=== PATIENT | female | born 1960 ===

== ENCOUNTER 2017-01-17 10:09 | Emergency (ER) | payer BC, OTHER ==
[~2017-01-17] VITALS: Ht 165.1 cm; Wt 79.4 kg
[2017-01-17] MEDS ORDERED: LIDOCAINE 1% / SOD BICARB 8.4% 20 ML VIAL. IJ ONE (11:30)
--- NOTE | 2017-01-17 11:43 | PHYS DOC ---
Past Medical History Past Medical History: No Pertinent History Past Surgical History: Other Additional Past Surgical Histo: STOMACH SURG Alcohol Use: None Drug Use: None Adult General Chief Complaint Chief Complaint: SHOUDLER HPI HPI Patient is a 56 year old female who presents with lessor pain. She states it started yesterday she denies any injury to it hurts in the posterior aspect of her left shoulder. She denies any chest pain nausea vomiting. She states it hurts more when she tries to move it. It's all of her shoulder she denies any elbow wrist or finger pain or discomfort. She is having sore on her anterior lower abdominal wall that started approximately week ago. She's states her last tetanus shot was 8 years ago. Review of Systems Review of Systems Constitutional: Denies fever or chills [] Eyes: Denies change in visual acuity, redness, or eye pain [] HENT: Denies nasal congestion or sore throat [] Respiratory: Denies cough or shortness of breath [] Cardiovascular: No additional information not addressed in HPI [] GI: Denies abdominal pain, nausea, vomiting, bloody stools or diarrhea [] : Denies dysuria or hematuria [] Musculoskeletal: Denies back pain or positive for left shoulder pain Integument: Denies rash or positive for abdominal wall abscess Neurologic: Denies headache, focal weakness or sensory changes [] Endocrine: Denies polyuria or polydipsia [] Current Medications Current Medications Current Medications Medications (Trade) Dose Ordered Sig/Rodger Start Time Stop Time Status Last Admin Dose Admin Clindamycin Phosphate (Cleocin 600 Mg Premix) 50 ml @ 100 mls/hr Q8HRS 01/17/17 14:00 UNV Diphtheria/ Tetanus/Acell Pertussis (Boostrix) 0.5 ml ONCE ONCE 01/17/17 11:45 01/17/17 11:46 DC 01/17/17 11:54 0.5 ML Hydromorphone HCl (Dilaudid) 1 mg 1X ONCE 01/17/17 12:45 01/17/17 12:46 DC 01/17/17 12:55 1 MG Hydromorphone HCl 1 mg 1 mg PRN Q15MIN PRN 01/17/17 13:15 01/18/17 13:14 Lidocaine/Sodium Bicarbonate (Buffered Lidocaine 1%) 20 ml 1X ONCE 01/17/17 11:30 01/17/17 11:32 DC 01/17/17 11:50 20 ML Morphine Sulfate 2 mg PRN Q15MIN PRN 01/17/17 11:15 01/18/17 11:14 01/17/17 11:55 2 MG Allergies Allergies Allergies Coded Allergies Type Severity Reaction Last Updated Verified No Known Drug Allergies 01/17/17 No Physical Exam Physical Exam Constitutional: Well developed, well nourished, no acute distress, non-toxic appearance. [] HENT: Normocephalic, atraumatic, bilateral external ears normal, oropharynx moist, no oral exudates, nose normal. [] Eyes: PERRLA, EOMI, conjunctiva normal, no discharge. [] Neck: Normal range of motion, no tenderness, supple, no stridor. [] Cardiovascular:Heart rate regular rhythm, no murmur [] Lungs & Thorax: Bilateral breath sounds clear to auscultation [] Abdomen: Bowel sounds normal, soft, no tenderness, no masses, no pulsatile masses. [] Skin: 4 x 5 cm abscess with shortness on the right lower quadrant Back: No tenderness, no CVA tenderness. [] Extremities: Palpation of the posterior aspect of her left shoulder, no cyanosis , no clubbing, ROM intact, no edema. Left radial pulse 2+, able to flex extend at her fingers, wrist, elbow without difficulty Neurologic: Alert and oriented X 3, normal motor function, normal sensory function, no focal deficits noted. [] Psychologic: Affect normal, judgement normal, mood normal. [] Current Patient Data Vital Signs Vital Signs Date Time Temp Pulse Resp B/P Pulse Ox O2 Delivery O2 Flow Rate FiO2 01/17/17 12:55 20 97 Room Air 01/17/17 10:25 98.4 100 120/72 98.4 Lab Values Laboratory Tests Test 01/17/17 11:39 White Blood Count 7.8x10^3/uL (4.0-11.0) Red Blood Count 4.52x10^6/uL (3.50-5.40) Hemoglobin 12.7g/dL (12.0-15.5) Hematocrit 38.2% (36.0-47.0) Mean Corpuscular Volume 85fL (79-100) Mean Corpuscular Hemoglobin 28pg (25-35) Mean Corpuscular Hemoglobin Concent 33g/dL (31-37) Red Cell Distribution Width 13.9% (11.5-14.5) Platelet Count 250x10^3/uL (140-400) Neutrophils (%) (Auto) 71% (31-73) Lymphocytes (%) (Auto) 21% (24-48) L Monocytes (%) (Auto) 7% (0-9) Eosinophils (%) (Auto) 1% (0-3) Basophils (%) (Auto) 0% (0-3) Neutrophils # (Auto) 5.5x10^3uL (1.8-7.7) Lymphocytes # (Auto) 1.7x10^3/uL (1.0-4.8) Monocytes # (Auto) 0.6x10^3/uL (0.0-1.1) Eosinophils # (Auto) 0.0x10^3/uL (0.0-0.7) Basophils # (Auto) 0.0x10^3/uL (0.0-0.2) Prothrombin Time 13.2SEC (11.7-14.0) Prothrombin Time INR 1.1 (0.8-1.1) Sodium Level 140mmol/L (136-145) Potassium Level 4.2mmol/L (3.5-5.1) Chloride Level 102mmol/L (98-107) Carbon Dioxide Level 28mmol/L (21-32) Anion Gap 10 (6-14) Blood Urea Nitrogen 13mg/dL (7-20) Creatinine 0.6mg/dL (0.6-1.0) Estimated GFR (Cockcroft-Gault) 103.4 Glucose Level 114mg/dL (70-99) H Calcium Level 9.7mg/dL (8.5-10.1) Magnesium Level 1.9mg/dL (1.8-2.4) Total Bilirubin 0.5mg/dL (0.2-1.0) Direct Bilirubin 0.1mg/dL (0.0-0.2) Aspartate Amino Transferase (AST) 17U/L (15-37) Alanine Aminotransferase (ALT) 18U/L (14-59) Alkaline Phosphatase 109U/L (46-116) Creatine Kinase 41U/L (26-192) Creatine Kinase MB (Mass) < 0.5ng/mL (0.0-3.6) Creatine Kinase MB Relative Index % (0-4) Troponin I Quantitative < 0.017ng/mL (0.000-0.055) MW-Loh-K-Type Natriuretic Peptide 33pg/mL (0-124) Total Protein 8.2g/dL (6.4-8.2) Albumin 4.1g/dL (3.4-5.0) Lipase 159U/L (73-393) Laboratory Tests 01/17/17 11:39 Laboratory Tests 01/17/17 11:39 EKG EKG EKG shows normal sinus rhythm with rate of [address] elevations, T- wave inversions noted in 1 and aVL, right axis deviation, QTC 4 ms, as interpreted by me. Radiology/Procedures Radiology/Procedures [address] [address] IMAGING REPORT Signed PATIENT: LUANNE LINARES ACCOUNT: [id number] : 1960 LOCATION: ER AGE: 56 SEX: F EXAM STATUS: REG ER ORD. PHYSICIAN: ROSEANNA FERNANDO MD REASON: arm pain PROCEDURE: VENOUS UPPER EXTREMITY LEFT Indication shoulder pain. Grayscale color Doppler and spectral imaging was performed. The examination was targeted to the veins of the left upper extremity. The examination is significantly limited. The patient could not cooperate for the examination and moved the arm. As result in the axilla was not seen. The superficial veins were not identified. The internal jugular vein is widely patent. That portion of the subclavian vein which is seen appears unremarkable. The axillary vein was not well demonstrated but that portion of the vein which was seen appeared unremarkable. Visualized ulnar and radial veins appeared normal. Visualized brachial vein appeared normal IMPRESSION: Limited study. No definite DVT seen in the left upper extremity DICTATED and SIGNED BY: NADINE THOMAS MD DATE: 01/17/171217 CC: ROSEANNA FERNANDO MD; ANIRUDH MELGAR DO [place] [id number] [place], [place] [id number] IMAGING REPORT Signed PATIENT: LUANNE LINARES ACCOUNT: [id number] : 1960 LOCATION: ER AGE: 56 SEX: F EXAM STATUS: REG ER ORD. PHYSICIAN: ROSEANNA FERNANDO MD REASON: shoulder pain PROCEDURE: PORTABLE CHEST 1V Indication shoulder and chest pain. A single view of the chest was obtained. No prior imaging of the chest is available. The heart and pulmonary vessels appear normal. The lungs are clear. There is no pleural fluid or pneumothorax. IMPRESSION: No acute finding in the chest DICTATED and SIGNED BY: NADINE THOMAS MD DATE: 01/17/171138 CC: ROSEANNA FERNANDO MD; ANIRUDH MELGAR DO ~ [facility] [address] [place] [address] IMAGING REPORT Signed PATIENT: LUANNE LINARES ACCOUNT: [id number] : 1960 LOCATION: ER AGE: 56 SEX: F EXAM STATUS: REG ER ORD. PHYSICIAN: ROSEANNA FERNANDO MD REASON: shoulder pain PROCEDURE: SHOULDER 2+V LEFT Indication shoulder pain for 2 days. No history of injury. 2 AP views and a Y-view of the left shoulder were obtained. There are some degenerative changes at the AC joint. There is a density, likely reflecting tendinous calcification, just below the acromion. An acute bony finding is not seen. IMPRESSION: No acute bony finding. Tendinous calcification. DICTATED and SIGNED BY: NADNIE THOMAS MD DATE: 01/17/171136 CC: ROSEANNA FERNANDO MD; ANIRUDH MELGAR DO ~ Impressions: Left shoulder pain Abdominal wall abscess Status post gastric bypass Course & Med Decision Making Course & Med Decision Making Pertinent Labs and Imaging studies reviewed. (See chart for details) Patient presented with left-sided shoulder pain this is likely a rotator cuff injury however she will need an MRI to further evaluate this. I did I&D her right lower quadrant abdominal wall abscess, wound cultures up and said she started clindamycin. She'll be admitted for MRI and pain control. Serial troponins have been obtained and aspirin has been given as the patient does have T-wave inversions in 1 and aVL but her pain is limited strictly to her left shoulder. Patient has his real plan. Admitted to the hospitalist this time. Dragon Disclaimer Dragon Disclaimer This electronic medical record was generated, in whole or in part, using a voice recognition dictation system. Incision and Drainage Indication: abscess of right lower quadrant abdominal wall Procedure: The patient was positioned appropriately. Local anesthesia was buffered lidocaine. An incision was then made over the apex of the lesion and small amount of material was expressed. The drainage cavity was packed with sterile gauze. The patients tetanus status updated as needed. The patient tolerated the procedure well. Complications: none. Departure Departure Impression: Primary Impression: Shoulder pain Disposition: ADMITTED INPATIENT Admitting Physician: Nafisa Orosco Condition: STABLE Referrals: ANIRUDH MELGAR DO (PCP) ROSEANNA FERNANDO MD Jan 17, 2017 11:43
[2017-01-17] MEDS ORDERED: DIPHTH,PERTUSS(ACELL),TET TOX 0.5 ML DISP.SYRIN. VAX IM ONE (11:45)
[2017-01-17 11:50] LABS: BASO % 0 % (0-3); EOS % 1 % (0-3); HEMATOCRIT 38.2 % (36.0-47.0); HEMOGLOBIN 12.7 g/dL (12.0-15.5); LYMPH # 1.7 x10^3/uL (1.0-4.8); LYMPH % 21 % (24-48); MEAN CORPUSCULAR HEMOGLOBIN 28 pg (25-35); MEAN CORPUSCULAR HGB CONC 33 g/dL (31-37); MEAN CORPUSCULAR VOLUME 85 fL (79-100); MONO % 7 % (0-9); NEUT % 71 % (31-73); PLATELET COUNT 250 x10^3/uL (140-400); RED BLOOD COUNT 4.52 x10^6/uL (3.50-5.40); RED CELL DISTRIBUTION WIDTH 13.9 % (11.5-14.5); WHITE BLOOD COUNT 7.8 x10^3/uL (4.0-11.0)
[2017-01-17] MEDS: MORPHINE SULFATE 2 MG/ML DISP.SYRIN. IV/SQ PRN (11:55)
[2017-01-17 11:59] LABS: INR 1.1 (0.8-1.1); PROTHROMBIN TIME PATIENT 13.2 SEC (11.7-14.0)
[2017-01-17 12:07] LABS: CALCIUM 9.7 mg/dL (8.5-10.1); CREATININE 0.6 mg/dL (0.6-1.0); GFR 103.4; POTASSIUM 4.2 mmol/L (3.5-5.1)
[2017-01-17 12:13] LABS: ALBUMIN 4.1 g/dL (3.4-5.0); DIRECT BILIRUBIN 0.1 mg/dL (0.0-0.2); MAGNESIUM 1.9 mg/dL (1.8-2.4); TOTAL BILIRUBIN 0.5 mg/dL (0.2-1.0); TOTAL PROTEIN 8.2 g/dL (6.4-8.2)
[2017-01-17 12:20] LABS: CKMB MASS < 0.5 ng/mL (0.0-3.6); CREATINE KINASE 41 U/L (26-192)
--- NOTE | 2017-01-17 12:23 | RAD ---
Indication shoulder pain. Grayscale color Doppler and spectral imaging was performed. The examination was targeted to the veins of the left upper extremity. The examination is significantly limited. The patient could not cooperate for the examination and moved the arm. As result in the axilla was not seen. The superficial veins were not identified. The internal jugular vein is widely patent. That portion of the subclavian vein which is seen appears unremarkable. The axillary vein was not well demonstrated but that portion of the vein which was seen appeared unremarkable. Visualized ulnar and radial veins appeared normal. Visualized brachial vein appeared normal IMPRESSION: Limited study. No definite DVT seen in the left upper extremity
[2017-01-17] MEDS ORDERED: HYDROMORPHONE 2 MG/ML VIAL. IV ONE (12:45)
--- NOTE | 2017-01-17 12:49 | EKG ---
[facility] [address] [place] [address] Test Date: 2017-01-17 Test Time: 11:34:15 Pat Name: LUANNE LINARES Department: Room: Gender: F Electrical Solderer: : 1960 Requested By: ROSEANNA FERNANDO Order Number: [id number] Reading MD: Measurements Intervals [place] Rate: 91 P: 151 IN: 206 QRS: 132 QRSD: 80 T: 162 QT: 324 QTc: 400 Interpretive Statements SINUS RHYTHM ABNORMAL RIGHT AXIS DEVIATION QRS(T) CONTOUR ABNORMALITY CONSISTENT WITH HIGH LATERAL INFARCT AGE UNDETERMINED ABNORMAL ECG RI6.01 No previous ECG available for comparison
[2017-01-17] MEDS: HYDROMORPHONE 2 MG/ML VIAL. IV/SQ PRN ×2 (13:35→17:03)
[2017-01-17] MEDS ORDERED: ASPIRIN 325 MG TABLET PO ONE (13:45)
[2017-01-17] MEDS ORDERED: MORPHINE SULFATE 4 MG/ML DISP.SYRIN. IV PRN (13:45)
[2017-01-17] MEDS ORDERED: ONDANSETRON PF 4 MG/2 ML VIAL. IV PRN (13:45)
[2017-01-17] MEDS ORDERED: CLINDAMYCIN 600MG PREMIX 50 ML IV ONE (14:00)
--- NOTE | 2017-01-17 15:10 | RAD ---
PROCEDURE MR of the left shoulder HISTORY Pain for 2 days. No known injury. TECHNIQUE Standard multiplanar sequences are obtained. COMPARISON None FINDINGS Acromioclavicular joint is intact. There is thickening with some increased signal identified at the supraspinatus and infraspinatus tendon compatible with tendinosis. Mild irregularity of the undersurface of the supraspinatus and infraspinatus tendons compatible withfraying or superficial tearing. No full-thickness rotator cuff tear. Subscapularis tendon intact. There is mild fluid and edema tracking medially along the supraspinatus and infraspinatus muscles may indicate an acute strain. There is some low T1/T2 signal foci along the posterosuperior glenoid and just below the supraspinatus muscle, may represent foci of calcium hydroxyapatite or ossification and appear chronic. These may be visible on radiographs. Trace fluid in the subdeltoid bursa. Trace glenohumeral joint effusion. Signal within the superior labrum compatible with a degenerative tear. No acute articular cartilage defect. Biceps tendon demonstrates tendinosis but no evidence of rupture or dislocation. No bone lesion or acute fracture. IMPRESSION 1. Generalized rotator cuff tendinosis. There is some superficial tearing or fraying of the undersurface of the supraspinatus and infraspinatus tendon, but no large or full-thickness tear. Note there is some fluid and edema signal tracking medially along the supraspinatus and infraspinatus muscle suggesting acute strain. 2. Small signal void foci along the posterosuperior glenoid, suggesting calcium hydroxyapatite or chronic ossification. 3. Degenerative tear of the superior labrum. Electronically signed by: Jose Luis Gomez MD (Jan 17, 2017 15:09:31)
[2017-01-17 15:45] VITALS: BP_SYST 113; BP_SYST 159; BP_DIAS 67; BP_DIAS 68
--- NOTE | 2017-01-17 17:43 | ACF ---
Admission Forms Criteria ABDOMINAL PAIN Clinical Indications for Admission to Inpatient Care (Place 'X' for any and all applicable criteria): Admission is indicated for ANY ONE of the following(1)(2)(3)(4)(5): [X]I. Inpatient admission required rather than observation care (Also use Abdominal Pain: Observation Care, as appropriate) because of ANY ONE of the following: [ ]a) Severe pain requiring acute inpatient management [ ]b) Identification of etiology/finding that requires inpatient care (eg, aortic dissection, free air) [ ]c) Absent bowel sounds with complete ileus(6) [ ]d) Suspected toxic megacolon [ ]e) Severe electrolyte abnormalities requiring inpatient care [ ]f) High fever or infection requiring inpatient admission as indicated by ANY ONE of following(7)(8): [ ] i) Appropriate outpatient or observational care antimicrobial treatment unavailable, not effective, or not feasible [ ] ii) Documented bacteremia [ ] iii) Temperature > 104.9 degrees F (oral) [ ] iv) T >103.1 F (oral) or < 96.8 F(rectal) that does not respond to all emergency treatment measures [ ]g) Signs of intestinal obstruction [B] [ ]h) Hemodynamic instability [ ]i) IV fluid to replace significant ongoing losses (greater than 3 L/m2 per day) (12)(13) [X]j) Percutaneous or open drainage (eg, abscess, biliary tract ) procedures [ ]k) Parenteral nutrition regimen that must be implemented on inpatient basis [ ]l) Other condition,treatment or monitoring requiring inpatient admission. [ ]II. Peritoneal signs present [ ]III. Surgery needed that cannot be performed on an ambulatory basis. [ ]IV. Evaluation requires patient to not eat or drink for extended period ( eg, more than 24 hours). [ ]V. Contraindications and/or Inappropriate clinical situations for Observational Care in patients with abdominal pain, when ANY ONE of the following is required: [ ]a) Thorough evaluation is required to prevent catastrophic events due to delays in diagnosing (e.g.Mesenteric ischemia) 1,3 [ ]b) Patient with severe pathology or with chronic symptoms unlikely to improve in the ED stay (3) [ ]. General contraindications and/or Inappropriate clinical situations for Observational Care in patients with abdominal pain, when ANY ONE of the following is required: [ ]a) Prediction of prolongation of LOS based on ANY ONE of the following may be considered as a contraindication for observational care 2, 3, 4, 5, 6, 7, 8, 9, 10, 11 [ ]i) Age > 65 yrs. [ ]ii) Patient arriving by ambulance [ ]iii) Patient with high acuity [ ]iv) Patient requiring vital sign monitoring [ ]v) Patient on IV medication [ ]b) Systolic blood pressures 180mmHg 3,12 [ ]c) Patient with altered mental status including delirium and other alteration of consciousness, (3) [ ]d) Patient whose discharge disposition will be to a nursing home home or rehabilitation home should not be managed in Emergency Department Observation Unit. CMS rule requires 3 days hospital stay before such placement.3,13 [ ]e) Patient with failure to thrive due to broad array of etiologies 3,16,17 [ ]f) Inability to ambulate 3,14 Extended stay beyond goal length of stay may be needed for(2)(3): [ ]a) Persistent abdominal pain with suspected intra-abdominal process [ ]b) Diagnosed condition requiring continued stay (e.g., pancreatitis, complicated diverticulitis) [ ]c) Surgery (e.g., colectomy) The original [facility] content created by [employer] has been revised. The portions of the content which have been revised are identified through the use of italic text or in bold, and [facility] has neither reviewed nor approved the modified material.All other unmodified content is copyright [employer]. Please see references footnoted in the original [facility] edition 2016 Admission Criteria Met?: Yes DENI ALCALA Jan 17, 2017 17:43
--- NOTE | 2017-01-17 18:52 | PDOC1 ---
History and Physical Date of Admission Date of Admission DATE: 01/17/17 TIME: 18:47 Identification/Chief Complaint Chief Complaint acute left shoulder pain Source Source: Caregiver, Chart review, Patient History of Present Illness History of Present Illness 50 y.o pleasant female, no significant past medical, acute onset left shoulder pain upon waking up this AM, denies trauma. Only takes fish oil and another OTC, PE, very remarkable limitation in ROM, cant elevate arm above head, unable to do external and internal rotation, looks in distress from pain over all. Morphine dec pain to 8./10 at its best MRI at ER: IMPRESSION 1. Generalized rotator cuff tendinosis. There is some superficial tearing or fraying of the undersurface of the supraspinatus and infraspinatus tendon, but no large or full-thickness tear. Note there is some fluid and edema signal tracking medially along the supraspinatus and infraspinatus muscle suggesting acute strain. 2. Small signal void foci along the posterosuperior glenoid, suggesting calcium hydroxyapatite or chronic ossification. 3. Degenerative tear of the superior labrum. LAbs ok. Never happened before. Past Medical History Cardiovascular: No pertinent hx Pulmonary: No pertinent hx GI: No pertinent hx Heme/Onc: No pertinent hx Hepatobiliary: No pertinent hx Psych: No pertinent hx Rheumatologic: No pertinent hx Infectious disease: No pertinent hx ENT: No pertinent hx Renal/: No pertinent hx Endocrine: No pertinent hx Dermatology: No pertinent hx Past Surgical History Past Surgical History: No pertinent history Family History Family History: Hypertension Social History Smoke: No ALCOHOL: none Drugs: None Current Problem List Problem List Problems Medical Problems: (1) Shoulder pain Status: Acute Problems: Current Medications Current Medications Current Medications Morphine Sulfate 2 mg PRN Q15MIN PRN IV/SQ PAIN GREATER THAN 3/10 Last administered on 01/17/17 11:55; Start 01/17/17 at 11:15; Stop 01/18/17 at 11:14 Lidocaine/Sodium Bicarbonate (Buffered Lidocaine 1%) 20 ml 1X ONCE IJ Last administered on 01/17/17 11:50; Start 01/17/17 at 11:30; Stop 01/17/17 at 11:32 ; Status DC Diphtheria/ Tetanus/Acell Pertussis (Boostrix) 0.5 ml ONCE ONCE VAX IM Last administered on 01/17/17 11:54; Start 01/17/17 at 11:45; Stop 01/17/17 at 11:46 ; Status DC Hydromorphone HCl (Dilaudid) 1 mg 1X ONCE IV Last administered on 01/17/17 12 :55; Start 01/17/17 at 12:45; Stop 01/17/17 at 12:46; Status DC Hydromorphone HCl 1 mg 1 mg PRN Q15MIN PRN IV/SQ PAIN GREATER THAN 3/10 Last administered on 01/17/17 17:03; Start 01/17/17 at 13:15; Stop 01/18/17 at 13:14 Clindamycin Phosphate 50 ml @ 100 mls/hr Q8HRS IV ; Start 01/17/17 at 22:00 Clindamycin Phosphate (Cleocin 600 Mg Premix) 50 ml @ 100 mls/hr ONCE ONCE IV Last administered on 01/17/17 14:52; Start 01/17/17 at 14:00; Stop 01/17/17 at 14:29; Status DC Ondansetron HCl (Zofran) 4 mg PRN Q8HRS PRN IV NAUSEA/VOMITING; Start 01/17/17 at 13:45; Stop 01/18/17 at 13:44 Morphine Sulfate 4 mg PRN Q2HR PRN IV PAIN; Start 01/17/17 at 13:45; Stop 01/18 at 13:44 Aspirin (Adilia Aspirin) 325 mg 1X ONCE PO Last administered on 01/17/17 16:58 ; Start 01/17/17 at 13:45; Stop 01/17/17 at 13:46; Status DC Naproxen (Naprosyn) 500 mg BID PO ; Start 01/17/17 at 21:00 Oxycodone/ Acetaminophen (Percocet 5/325) 1 tab PRN Q4HRS PRN PO PAIN; Start at 16:30 Allergies Allergies: Coded Allergies: No Known Drug Allergies (Unverified , 01/17/17) ROS General: No: Appetite, Chills, Fatigue, Malaise, Night Sweats, Other PSYCHOLOGICAL ROS: No: Anxiety, Behavioral Disorder, Concentration difficultie , Decreased libido, Depression, Disorientation, Hallucinations, Hostility, Irritablity, Memory difficulties, Mood Swings, Obsessive thoughts, Other, Physical abuse, Sexual abuse, Sleep disturbances, Suicidal ideation Eyes: No Blurry vision, No Decreased vision, No Double vision, No Dry eyes, No Excessive tearing, No Eye Pain, No Itchy Eyes, No Loss of vision, No Other, No Photophobia, No Scotomata, No Uses contacts, No Uses glasses HEENT: No: Epistaxis, Heacaches, Hearing change, Nasal congestion, Nasal discharge, Oral lesions, Other, Sinus pain, Sneezing, Snoring, Sore Throat, Tinnitus, Vertigo, Visual Changes, Vocal changes ALLERGY AND IMMUNOLOGY: No: Hives, Insect Bite Sensitivity, Itchy/Watery Eyes, Nasal Congestion, Other, Post Nasal Drip, Seasonal Allergies Hematological and Lymphatic: No: Bleeding Problems, Blood Clots, Blood Transfusions, Brusing, Night Sweats, Other, Pallor, Swollen Lymph Nodes ENDOCRINE: No: Breast Changes, Galactorrhea, Hair Pattern Changes, Hot Flashes , Malaise/lethargy, Mood Swings, Other, Palpitations, Polydipsia/polyuria, Skin Changes, Temperature Intolerance, Unexpected Weight Changes Breast: No New/Changing Breast Lumps, No Nipple changes, No Nipple discharge, No Other Respiratory: No: Cough, Hemoptysis, Orthopnea, Other, Pleuritic Pain, SOB with excertion, Shortness of breath, Sputum Changes, Stridor, Tachypnea, Wheezing Gastrointestinal: No Abdominal Pain, No Constipation, No Diarrhea, No Hematochezia, No Melena, No Nausea, No Other, No Vomiting Genitourinary: No , No , No , No , No , No , No , No Discharge, No Dysuria, No Flank Pain, No Frequency, No Hematuria, No Incontinence, No Other, No Pain, No Retention, No Urgency Musculoskeletal: Yes Other (per HPI) Neurological: No Behavorial Changes, No Bowel/Bladder ControlChng, No Confusion , No Dizziness, No Gait Disturbance, No Headaches, No Impaired Coord/balance, No Memory Loss, No Numbness/Tingling, No Other, No Seizures, No Speech Problems , No Tremors, No Visual Changes, No Weakness Skin: No Acne, No Dry Skin, No Eczema, No Hair Changes, No Lumps, No Mole Changes, No Mottling, No Nail Changes, No Other, No Pruritus, No Rash, No Skin Lesion Changes Physical Exam General: mild distress, Other (from pain, looks very uncomfortable left shoulder) HEENT: Atraumatic, PERRLA Lungs: Clear to auscultation, Normal air movement Heart: S1S2, RRR, no thrills, no rubs, no gallops Cardiovascular: S1, S2 Breasts: Normal, Rt breast nml w/o mass, Lt breast nml w/o mass, Nipples normal Abdomen: Normal bowel sounds, Soft, No tenderness, No hepatosplenomegaly, No masses Rectal Exam: not examined PELVIC: Nml ext genitalia Extremities: Other (tenderness to palpation left shoulder, limited ROM, no edema appreciated) Skin: No rashes, No breakdown, No significant lesion Neuro: Normal gait, Normal speech, Strength at 5/5 X4 ext, Normal tone, Sensation intact, Cranial nerves 3-12 NL, Reflexes 2+ Psych/Mental Status: Mental status NL, Mood NL Vitals Vitals Vital Signs Date Time Temp Pulse Resp B/P Pulse Ox O2 Delivery O2 Flow Rate FiO2 01/17/17 17:33 Room Air 01/17/17 15:45 98.1 68 20 159/68 94 98.1 Labs Labs Laboratory Tests Test 01/17/17 11:39 White Blood Count 7.8x10^3/uL (4.0-11.0) Red Blood Count 4.52x10^6/uL (3.50-5.40) Hemoglobin 12.7g/dL (12.0-15.5) Hematocrit 38.2% (36.0-47.0) Mean Corpuscular Volume 85fL (79-100) Mean Corpuscular Hemoglobin 28pg (25-35) Mean Corpuscular Hemoglobin Concent 33g/dL (31-37) Red Cell Distribution Width 13.9% (11.5-14.5) Platelet Count 250x10^3/uL (140-400) Neutrophils (%) (Auto) 71% (31-73) Lymphocytes (%) (Auto) 21% (24-48) Monocytes (%) (Auto) 7% (0-9) Eosinophils (%) (Auto) 1% (0-3) Basophils (%) (Auto) 0% (0-3) Neutrophils # (Auto) 5.5x10^3uL (1.8-7.7) Lymphocytes # (Auto) 1.7x10^3/uL (1.0-4.8) Monocytes # (Auto) 0.6x10^3/uL (0.0-1.1) Eosinophils # (Auto) 0.0x10^3/uL (0.0-0.7) Basophils # (Auto) 0.0x10^3/uL (0.0-0.2) Prothrombin Time 13.2SEC (11.7-14.0) Prothromb Time International Ratio 1.1 (0.8-1.1) Sodium Level 140mmol/L (136-145) Potassium Level 4.2mmol/L (3.5-5.1) Chloride Level 102mmol/L (98-107) Carbon Dioxide Level 28mmol/L (21-32) Anion Gap 10 (6-14) Blood Urea Nitrogen 13mg/dL (7-20) Creatinine 0.6mg/dL (0.6-1.0) Estimated GFR (Cockcroft-Gault) 103.4 Glucose Level 114mg/dL (70-99) Calcium Level 9.7mg/dL (8.5-10.1) Magnesium Level 1.9mg/dL (1.8-2.4) Total Bilirubin 0.5mg/dL (0.2-1.0) Direct Bilirubin 0.1mg/dL (0.0-0.2) Aspartate Amino Transf (AST/SGOT) 17U/L (15-37) Alanine Aminotransferase (ALT/SGPT) 18U/L (14-59) Alkaline Phosphatase 109U/L (46-116) Creatine Kinase 41U/L (26-192) Creatine Kinase MB (Mass) < 0.5ng/mL (0.0-3.6) Creatine Kinase MB Relative Index % (0-4) Troponin I Quantitative < 0.017ng/mL (0.000-0.055) GX-Qmj-W-Type Natriuretic Peptide 33pg/mL (0-124) Total Protein 8.2g/dL (6.4-8.2) Albumin 4.1g/dL (3.4-5.0) Lipase 159U/L (73-393) Laboratory Tests Test 01/17/17 11:39 White Blood Count 7.8x10^3/uL (4.0-11.0) Red Blood Count 4.52x10^6/uL (3.50-5.40) Hemoglobin 12.7g/dL (12.0-15.5) Hematocrit 38.2% (36.0-47.0) Mean Corpuscular Volume 85fL (79-100) Mean Corpuscular Hemoglobin 28pg (25-35) Mean Corpuscular Hemoglobin Concent 33g/dL (31-37) Red Cell Distribution Width 13.9% (11.5-14.5) Platelet Count 250x10^3/uL (140-400) Neutrophils (%) (Auto) 71% (31-73) Lymphocytes (%) (Auto) 21% (24-48) Monocytes (%) (Auto) 7% (0-9) Eosinophils (%) (Auto) 1% (0-3) Basophils (%) (Auto) 0% (0-3) Neutrophils # (Auto) 5.5x10^3uL (1.8-7.7) Lymphocytes # (Auto) 1.7x10^3/uL (1.0-4.8) Monocytes # (Auto) 0.6x10^3/uL (0.0-1.1) Eosinophils # (Auto) 0.0x10^3/uL (0.0-0.7) Basophils # (Auto) 0.0x10^3/uL (0.0-0.2) Prothrombin Time 13.2SEC (11.7-14.0) Prothromb Time International Ratio 1.1 (0.8-1.1) Sodium Level 140mmol/L (136-145) Potassium Level 4.2mmol/L (3.5-5.1) Chloride Level 102mmol/L (98-107) Carbon Dioxide Level 28mmol/L (21-32) Anion Gap 10 (6-14) Blood Urea Nitrogen 13mg/dL (7-20) Creatinine 0.6mg/dL (0.6-1.0) Estimated GFR (Cockcroft-Gault) 103.4 Glucose Level 114mg/dL (70-99) Calcium Level 9.7mg/dL (8.5-10.1) Magnesium Level 1.9mg/dL (1.8-2.4) Total Bilirubin 0.5mg/dL (0.2-1.0) Direct Bilirubin 0.1mg/dL (0.0-0.2) Aspartate Amino Transf (AST/SGOT) 17U/L (15-37) Alanine Aminotransferase (ALT/SGPT) 18U/L (14-59) Alkaline Phosphatase 109U/L (46-116) Creatine Kinase 41U/L (26-192) Creatine Kinase MB (Mass) < 0.5ng/mL (0.0-3.6) Creatine Kinase MB Relative Index % (0-4) Troponin I Quantitative < 0.017ng/mL (0.000-0.055) SW-[id number]-[id number]-Type Natriuretic Peptide 33pg/mL (0-124) Total Protein 8.2g/dL (6.4-8.2) Albumin 4.1g/dL (3.4-5.0) Lipase 159U/L (73-393) VTE Prophylaxis Ordered VTE Prophylaxis Devices: Yes VTE Pharmacological Prophylaxi: Yes Assessment/Plan Assessment/Plan 1. Left shoulder pain,acute onset, Generalized rotator cuff tendinosis. \2 Degenerative tear of the superior labrum, left shoulder PLAn: Need to inc pain meds Start NSAID PO scheduled Need ortho expertise Ok for reg diet Resume home meds PT/OT when able Supportive meds BRIANA HARGROVE MD Jan 17, 2017 18:52
[2017-01-17 19:17] VITALS: BP 109/50
[2017-01-17] MEDS: NAPROXEN 500 MG TABLET PO SCH (21:16)
[2017-01-17] MEDS: CLINDAMYCIN 600MG PREMIX 50 ML IV SCH (22:31)
[2017-01-17] MEDS: OXYCODONE/APAP 5/325 TABLET. PO PRN (22:39)
[2017-01-17 23:25] VITALS: BP 98/48
[2017-01-18 03:20] VITALS: BP 112/59
[2017-01-18 03:45] LABS: CALCIUM 9.3 mg/dL (8.5-10.1); CREATININE 0.5 mg/dL (0.6-1.0); GFR 127.6; POTASSIUM 3.7 mmol/L (3.5-5.1)
[2017-01-18 04:05] LABS: BASO % 0 % (0-3); EOS % 0 % (0-3); HEMATOCRIT 36.7 % (36.0-47.0); HEMOGLOBIN 11.9 g/dL (12.0-15.5); LYMPH # 1.3 x10^3/uL (1.0-4.8); LYMPH % 13 % (24-48); MEAN CORPUSCULAR HEMOGLOBIN 28 pg (25-35); MEAN CORPUSCULAR HGB CONC 33 g/dL (31-37); MEAN CORPUSCULAR VOLUME 85 fL (79-100); MONO % 8 % (0-9); NEUT % 79 % (31-73); PLATELET COUNT 245 x10^3/uL (140-400); WHITE BLOOD COUNT 9.8 x10^3/uL (4.0-11.0)
[2017-01-18] MEDS: CLINDAMYCIN 600MG PREMIX 50 ML IV SCH ×2 (06:12→14:08)
[2017-01-18] MEDS: OXYCODONE/APAP 5/325 TABLET. PO PRN ×3 (06:12→17:53)
[2017-01-18 07:00] VITALS: BP 103/58
[2017-01-18] MEDS: NAPROXEN 500 MG TABLET PO SCH (07:32)
[2017-01-18] MEDS: MORPHINE SULFATE 2 MG/ML DISP.SYRIN. IV/SQ PRN (07:33)
[2017-01-18 11:00] VITALS: BP 113/66
[2017-01-18] MEDS ORDERED: CLIN300C86 PO (13:23)
[2017-01-18] MEDS ORDERED: NAPR500T3 PO (13:23)
--- NOTE | 2017-01-18 13:24 | PDOC ---
PROGRESS NOTES Chief Complaint Chief Complaint 1. Left shoulder pain,acute onset, Generalized rotator cuff tendinosis. \2 Degenerative tear of the superior labrum, left shoulder 3. abd wall abscess s/p I and D at ER and packing History of Present Illness History of Present Illness Better left shoulder now, able to raise above head Awaiting ortho to revoew MRI films and see pt Pt addresses the abd wall abscess drained at ER NOn diabetic. BS ok Dtr claims tends to happen frequently in abd wall, also needing I and D (shows me the scars) Low grade temp? last night (99) PLAn: COnt IV clinda GEt GS re the abd wall abscess drained - to heal by secondary intention as louise ER MD on today Await ortho recs if any re left shoulder Rx inc hitchcock if pt is to dc later after the above consults Dw family and RN Vitals Vitals Vital Signs Date Time Temp Pulse Resp B/P Pulse Ox O2 Delivery O2 Flow Rate FiO2 01/18/17 11:00 98.1 81 20 113/66 95 Room Air 98.1 Physical Exam General: mild distress, Other (from pain, looks very uncomfortable left shoulder) Abdomen: Normal bowel sounds, Soft, No tenderness, No hepatosplenomegaly, No masses Extremities: Other (tenderness to palpation left shoulder, limited ROM, no edema appreciated) Skin: No rashes, No breakdown, No significant lesion Labs LABS Laboratory Tests Test 01/17/17 20:00 01/18/17 02:00 Troponin I Quantitative < 0.017ng/mL (0.000-0.055) < 0.017ng/mL (0.000-0.055) White Blood Count 9.8x10^3/uL (4.0-11.0) Red Blood Count 4.30x10^6/uL (3.50-5.40) Hemoglobin 11.9g/dL (12.0-15.5) Hematocrit 36.7% (36.0-47.0) Mean Corpuscular Volume 85fL (79-100) Mean Corpuscular Hemoglobin 28pg (25-35) Mean Corpuscular Hemoglobin Concent 33g/dL (31-37) Red Cell Distribution Width 14.0% (11.5-14.5) Platelet Count 245x10^3/uL (140-400) Neutrophils (%) (Auto) 79% (31-73) Lymphocytes (%) (Auto) 13% (24-48) Monocytes (%) (Auto) 8% (0-9) Eosinophils (%) (Auto) 0% (0-3) Basophils (%) (Auto) 0% (0-3) Neutrophils # (Auto) 7.7x10^3uL (1.8-7.7) Lymphocytes # (Auto) 1.3x10^3/uL (1.0-4.8) Monocytes # (Auto) 0.8x10^3/uL (0.0-1.1) Eosinophils # (Auto) 0.0x10^3/uL (0.0-0.7) Basophils # (Auto) 0.0x10^3/uL (0.0-0.2) Sodium Level 139mmol/L (136-145) Potassium Level 3.7mmol/L (3.5-5.1) Chloride Level 102mmol/L (98-107) Carbon Dioxide Level 26mmol/L (21-32) Anion Gap 11 (6-14) Blood Urea Nitrogen 13mg/dL (7-20) Creatinine 0.5mg/dL (0.6-1.0) Estimated GFR (Cockcroft-Gault) 127.6 Glucose Level 101mg/dL (70-99) Calcium Level 9.3mg/dL (8.5-10.1) Review of Systems Review of Systems no abd pain, n,v,d, no cp, soa Assessment and Plan Assessmemt and Plan Problems Medical Problems: (1) Shoulder pain Status: Acute Problems: Comment Review of Relevant I have reviewed the following items shawn (where applicable) has been applied. Labs Laboratory Tests Test 01/17/17 11:39 01/17/17 20:00 01/18/17 02:00 White Blood Count 7.8x10^3/uL (4.0-11.0) 9.8x10^3/uL (4.0-11.0) Red Blood Count 4.52x10^6/uL (3.50-5.40) 4.30x10^6/uL (3.50-5.40) Hemoglobin 12.7g/dL (12.0-15.5) 11.9g/dL (12.0-15.5) Hematocrit 38.2% (36.0-47.0) 36.7% (36.0-47.0) Mean Corpuscular Volume 85fL (79-100) 85fL (79-100) Mean Corpuscular Hemoglobin 28pg (25-35) 28pg (25-35) Mean Corpuscular Hemoglobin Concent 33g/dL (31-37) 33g/dL (31-37) Red Cell Distribution Width 13.9% (11.5-14.5) 14.0% (11.5-14.5) Platelet Count 250x10^3/uL (140-400) 245x10^3/uL (140-400) Neutrophils (%) (Auto) 71% (31-73) 79% (31-73) Lymphocytes (%) (Auto) 21% (24-48) 13% (24-48) Monocytes (%) (Auto) 7% (0-9) 8% (0-9) Eosinophils (%) (Auto) 1% (0-3) 0% (0-3) Basophils (%) (Auto) 0% (0-3) 0% (0-3) Neutrophils # (Auto) 5.5x10^3uL (1.8-7.7) 7.7x10^3uL (1.8-7.7) Lymphocytes # (Auto) 1.7x10^3/uL (1.0-4.8) 1.3x10^3/uL (1.0-4.8) Monocytes # (Auto) 0.6x10^3/uL (0.0-1.1) 0.8x10^3/uL (0.0-1.1) Eosinophils # (Auto) 0.0x10^3/uL (0.0-0.7) 0.0x10^3/uL (0.0-0.7) Basophils # (Auto) 0.0x10^3/uL (0.0-0.2) 0.0x10^3/uL (0.0-0.2) Prothrombin Time 13.2SEC (11.7-14.0) Prothromb Time International Ratio 1.1 (0.8-1.1) Sodium Level 140mmol/L (136-145) 139mmol/L (136-145) Potassium Level 4.2mmol/L (3.5-5.1) 3.7mmol/L (3.5-5.1) Chloride Level 102mmol/L (98-107) 102mmol/L (98-107) Carbon Dioxide Level 28mmol/L (21-32) 26mmol/L (21-32) Anion Gap 10 (6-14) 11 (6-14) Blood Urea Nitrogen 13mg/dL (7-20) 13mg/dL (7-20) Creatinine 0.6mg/dL (0.6-1.0) 0.5mg/dL (0.6-1.0) Estimated GFR (Cockcroft-Gault) 103.4 127.6 Glucose Level 114mg/dL (70-99) 101mg/dL (70-99) Calcium Level 9.7mg/dL (8.5-10.1) 9.3mg/dL (8.5-10.1) Magnesium Level 1.9mg/dL (1.8-2.4) Total Bilirubin 0.5mg/dL (0.2-1.0) Direct Bilirubin 0.1mg/dL (0.0-0.2) Aspartate Amino Transf (AST/SGOT) 17U/L (15-37) Alanine Aminotransferase (ALT/SGPT) 18U/L (14-59) Alkaline Phosphatase 109U/L (46-116) Creatine Kinase 41U/L (26-192) Creatine Kinase MB (Mass) < 0.5ng/mL (0.0-3.6) Creatine Kinase MB Relative Index % (0-4) Troponin I Quantitative < 0.017ng/mL (0.000-0.055) < 0.017ng/mL (0.000-0.055) < 0.017ng/mL (0.000-0.055) PH-Phf-O-Type Natriuretic Peptide 33pg/mL (0-124) Total Protein 8.2g/dL (6.4-8.2) Albumin 4.1g/dL (3.4-5.0) Lipase 159U/L (73-393) Laboratory Tests Test 01/17/17 20:00 01/18/17 02:00 Troponin I Quantitative < 0.017ng/mL (0.000-0.055) < 0.017ng/mL (0.000-0.055) White Blood Count 9.8x10^3/uL (4.0-11.0) Red Blood Count 4.30x10^6/uL (3.50-5.40) Hemoglobin 11.9g/dL (12.0-15.5) Hematocrit 36.7% (36.0-47.0) Mean Corpuscular Volume 85fL (79-100) Mean Corpuscular Hemoglobin 28pg (25-35) Mean Corpuscular Hemoglobin Concent 33g/dL (31-37) Red Cell Distribution Width 14.0% (11.5-14.5) Platelet Count 245x10^3/uL (140-400) Neutrophils (%) (Auto) 79% (31-73) Lymphocytes (%) (Auto) 13% (24-48) Monocytes (%) (Auto) 8% (0-9) Eosinophils (%) (Auto) 0% (0-3) Basophils (%) (Auto) 0% (0-3) Neutrophils # (Auto) 7.7x10^3uL (1.8-7.7) Lymphocytes # (Auto) 1.3x10^3/uL (1.0-4.8) Monocytes # (Auto) 0.8x10^3/uL (0.0-1.1) Eosinophils # (Auto) 0.0x10^3/uL (0.0-0.7) Basophils # (Auto) 0.0x10^3/uL (0.0-0.2) Sodium Level 139mmol/L (136-145) Potassium Level 3.7mmol/L (3.5-5.1) Chloride Level 102mmol/L (98-107) Carbon Dioxide Level 26mmol/L (21-32) Anion Gap 11 (6-14) Blood Urea Nitrogen 13mg/dL (7-20) Creatinine 0.5mg/dL (0.6-1.0) Estimated GFR (Cockcroft-Gault) 127.6 Glucose Level 101mg/dL (70-99) Calcium Level 9.3mg/dL (8.5-10.1) Microbiology 3/24/17 Gram Stain - Final, Complete Medications Current Medications Morphine Sulfate 2 mg PRN Q15MIN PRN IV/SQ PAIN GREATER THAN 3/10 Last administered on 01/18/17 07:33; Start 01/17/17 at 11:15; Stop 01/18/17 at 11:14 ; Status DC Lidocaine/Sodium Bicarbonate (Buffered Lidocaine 1%) 20 ml 1X ONCE IJ Last administered on 01/17/17 11:50; Start 01/17/17 at 11:30; Stop 01/17/17 at 11:32 ; Status DC Diphtheria/ Tetanus/Acell Pertussis (Boostrix) 0.5 ml ONCE ONCE VAX IM Last administered on 01/17/17 11:54; Start 01/17/17 at 11:45; Stop 01/17/17 at 11:46 ; Status DC Hydromorphone HCl (Dilaudid) 1 mg 1X ONCE IV Last administered on 01/17/17 12 :55; Start 01/17/17 at 12:45; Stop 01/17/17 at 12:46; Status DC Hydromorphone HCl 1 mg 1 mg PRN Q15MIN PRN IV/SQ PAIN GREATER THAN 3/10 Last administered on 01/17/17 17:03; Start 01/17/17 at 13:15; Stop 01/18/17 at 13:14 ; Status DC Clindamycin Phosphate 50 ml @ 100 mls/hr Q8HRS IV Last administered on 06:12; Start 01/17/17 at 22:00 Clindamycin Phosphate (Cleocin 600 Mg Premix) 50 ml @ 100 mls/hr ONCE ONCE IV Last administered on 01/17/17 14:52; Start 01/17/17 at 14:00; Stop 01/17/17 at 14:29; Status DC Ondansetron HCl (Zofran) 4 mg PRN Q8HRS PRN IV NAUSEA/VOMITING Last administered on 01/17/17 21:16; Start 01/17/17 at 13:45; Stop 01/18/17 at 13:44 Morphine Sulfate 4 mg PRN Q2HR PRN IV PAIN Last administered on 01/17/17 21:16 ; Start 01/17/17 at 13:45; Stop 01/18/17 at 13:44 Aspirin (Adilia Aspirin) 325 mg 1X ONCE PO Last administered on 01/17/17 16:58 ; Start 01/17/17 at 13:45; Stop 01/17/17 at 13:46; Status DC Naproxen (Naprosyn) 500 mg BID PO Last administered on 01/18/17 07:32; Start 01/17/17 at 21:00 Oxycodone/ Acetaminophen (Percocet 5/325) 1 tab PRN Q4HRS PRN PO PAIN Last administered on 01/18/17 06:12; Start 01/17/17 at 16:30 Clindamycin HCl (Cleocin) 300 mg TID PO ; Start 01/18/17 at 14:00; Stop at 14:00; Status DC Vitals/I & O Vital Sign - Last 24 Hours 01/17/17 01/17/17 01/17/17 01/17/17 13:35 14:05 14:42 15:42 Pulse 111 108 Resp 20 20 20 B/P 145/72 130/70 Pulse Ox 97 94 98 97 O2 Delivery Room Air Room Air Room Air 01/17/17 01/17/17 01/17/17 01/17/17 15:45 15:45 17:03 17:33 Temp 98.7 98.1 98.7 98.1 Pulse 105 68 Resp 20 20 B/P 113/67 159/68 Pulse Ox 94 94 O2 Delivery Room Air Room Air Room Air Room Air 01/17/17 01/17/17 01/17/17 01/17/17 19:17 20:30 21:16 22:35 Temp 99.1 99.1 Pulse 103 Resp 18 B/P 109/50 Pulse Ox 93 O2 Delivery Room Air Room Air Room Air Room Air 01/17/17 01/17/17 01/18/17 01/18/17 22:39 23:25 03:20 06:12 Temp 98.8 97.7 98.8 97.7 Pulse 95 75 Resp 18 18 B/P 98/48 112/59 Pulse Ox 96 98 O2 Delivery Room Air Room Air Room Air Room Air 01/18/17 01/18/17 01/18/17 01/18/17 07:00 07:33 07:39 08:00 Temp 98.0 98.0 Pulse 82 Resp 20 16 16 B/P 103/58 Pulse Ox 95 98 O2 Delivery Room Air Room Air Room Air Room Air 01/18/17 01/18/17 09:06 11:00 Temp 98.1 98.1 Pulse 81 Resp 18 20 B/P 113/66 Pulse Ox 98 95 O2 Delivery Room Air Room Air Intake and Output 01/17/17 01/17/17 01/18/17 15:00 23:00 07:00 Intake Total 300 ml Output Total 0 ml Balance 0 ml 300 ml BRIANA HARGROVE MD Jan 18, 2017 13:24
[2017-01-18] MEDS ORDERED: CLINDAMYCIN HCL 150 MG CAPSULE PO SCH (14:00)
--- NOTE | 2017-01-18 14:44 | PDOC2 ---
CONSULT Date of Consult Date of Consult DATE: 01/18/17 TIME: 14:38 Reason for Consult Reason for Consult: abdominal wall abscess Referring Physician Referring Physician: Dr Orosco Identification/Chief Complaint Chief Complaint abdominal wall abscess shoulder pain Source Source: Chart review, Patient History of Present Illness Reason for Visit: Admitted for shoulder pain and abscess to abdomen Reports abscess has been there about 1 week, she had a similar episode in a different spot about a year ago that needed drained. The area was opened and drained in the ER. It is still sore, however is feeling better Past Medical History Cardiovascular: No pertinent hx Pulmonary: No pertinent hx GI: No pertinent hx Heme/Onc: No pertinent hx Hepatobiliary: No pertinent hx Psych: No pertinent hx Rheumatologic: No pertinent hx Infectious disease: No pertinent hx ENT: No pertinent hx Renal/: No pertinent hx Endocrine: No pertinent hx Dermatology: No pertinent hx Past Surgical History Past Surgical History: Other (lap band 1 year ago) Family History Family History: Hypertension Social History No ALCOHOL: none Drugs: None Current Problem List Problem List Problems Medical Problems: (1) Shoulder pain Status: Acute Current Medications Current Medications Current Medications Morphine Sulfate 2 mg PRN Q15MIN PRN IV/SQ PAIN GREATER THAN 3/10 Last administered on 01/18/17 07:33; Start 01/17/17 at 11:15; Stop 01/18/17 at 11:14 ; Status DC Lidocaine/Sodium Bicarbonate (Buffered Lidocaine 1%) 20 ml 1X ONCE IJ Last administered on 01/17/17 11:50; Start 01/17/17 at 11:30; Stop 01/17/17 at 11:32 ; Status DC Diphtheria/ Tetanus/Acell Pertussis (Boostrix) 0.5 ml ONCE ONCE VAX IM Last administered on 01/17/17 11:54; Start 01/17/17 at 11:45; Stop 01/17/17 at 11:46 ; Status DC Hydromorphone HCl (Dilaudid) 1 mg 1X ONCE IV Last administered on 01/17/17 12 :55; Start 01/17/17 at 12:45; Stop 01/17/17 at 12:46; Status DC Hydromorphone HCl 1 mg 1 mg PRN Q15MIN PRN IV/SQ PAIN GREATER THAN 3/10 Last administered on 01/17/17 17:03; Start 01/17/17 at 13:15; Stop 01/18/17 at 13:14 ; Status DC Clindamycin Phosphate 50 ml @ 100 mls/hr Q8HRS IV Last administered on 14:08; Start 01/17/17 at 22:00 Clindamycin Phosphate (Cleocin 600 Mg Premix) 50 ml @ 100 mls/hr ONCE ONCE IV Last administered on 01/17/17 14:52; Start 01/17/17 at 14:00; Stop 01/17/17 at 14:29; Status DC Ondansetron HCl (Zofran) 4 mg PRN Q8HRS PRN IV NAUSEA/VOMITING Last administered on 01/17/17 21:16; Start 01/17/17 at 13:45; Stop 01/18/17 at 13:44 ; Status DC Morphine Sulfate 4 mg PRN Q2HR PRN IV PAIN Last administered on 01/17/17 21:16 ; Start 01/17/17 at 13:45; Stop 01/18/17 at 13:44; Status DC Aspirin (Adilia Aspirin) 325 mg 1X ONCE PO Last administered on 01/17/17 16:58 ; Start 01/17/17 at 13:45; Stop 01/17/17 at 13:46; Status DC Naproxen (Naprosyn) 500 mg BID PO Last administered on 01/18/17 07:32; Start 01/17/17 at 21:00 Oxycodone/ Acetaminophen (Percocet 5/325) 1 tab PRN Q4HRS PRN PO PAIN Last administered on 01/18/17 06:12; Start 01/17/17 at 16:30 Clindamycin HCl (Cleocin) 300 mg TID PO ; Start 01/18/17 at 14:00; Stop at 14:00; Status DC Allergies Allergies: Coded Allergies: No Known Drug Allergies (Unverified , 01/17/17) ROS General: No: Chills, Other (fevers) PSYCHOLOGICAL ROS: No: Anxiety, Depression Eyes: No Blurry vision, No Double vision HEENT: No: Heacaches, Sore Throat Hematological and Lymphatic: No: Bleeding Problems, Blood Clots Respiratory: No: Cough, Shortness of breath Gastrointestinal: Yes Other (see hpi) Genitourinary: No Dysuria, No Hematuria Musculoskeletal: Yes Joint Pain, Yes Joint Stiffness Neurological: No Confusion, No Memory Loss Skin: Yes Other (see hpi) Physical Exam General: Alert, Oriented X3, Cooperative, No acute distress HEENT: PERRLA, Mucous membr. moist/pink Lungs: Clear to auscultation, Normal air movement Heart: Regular rate, Normal S1, Normal S2, No murmurs Abdomen: Soft, Other (ND, tenderness wound area, there is some erythema and induration, no fluctuance--superficial wound ) Extremities: No clubbing, No cyanosis Skin: No rashes, No breakdown Neuro: Normal speech MUSCULOSKELETAL: Other (limited mobility left arm) Vitals VITALS Vital Signs Date Time Temp Pulse Resp B/P Pulse Ox O2 Delivery O2 Flow Rate FiO2 01/18/17 11:00 98.1 81 20 113/66 95 Room Air 98.1 Labs Labs Laboratory Tests Test 01/17/17 11:39 01/17/17 20:00 01/18/17 02:00 White Blood Count 7.8x10^3/uL (4.0-11.0) 9.8x10^3/uL (4.0-11.0) Red Blood Count 4.52x10^6/uL (3.50-5.40) 4.30x10^6/uL (3.50-5.40) Hemoglobin 12.7g/dL (12.0-15.5) 11.9g/dL (12.0-15.5) Hematocrit 38.2% (36.0-47.0) 36.7% (36.0-47.0) Mean Corpuscular Volume 85fL (79-100) 85fL (79-100) Mean Corpuscular Hemoglobin 28pg (25-35) 28pg (25-35) Mean Corpuscular Hemoglobin Concent 33g/dL (31-37) 33g/dL (31-37) Red Cell Distribution Width 13.9% (11.5-14.5) 14.0% (11.5-14.5) Platelet Count 250x10^3/uL (140-400) 245x10^3/uL (140-400) Neutrophils (%) (Auto) 71% (31-73) 79% (31-73) Lymphocytes (%) (Auto) 21% (24-48) 13% (24-48) Monocytes (%) (Auto) 7% (0-9) 8% (0-9) Eosinophils (%) (Auto) 1% (0-3) 0% (0-3) Basophils (%) (Auto) 0% (0-3) 0% (0-3) Neutrophils # (Auto) 5.5x10^3uL (1.8-7.7) 7.7x10^3uL (1.8-7.7) Lymphocytes # (Auto) 1.7x10^3/uL (1.0-4.8) 1.3x10^3/uL (1.0-4.8) Monocytes # (Auto) 0.6x10^3/uL (0.0-1.1) 0.8x10^3/uL (0.0-1.1) Eosinophils # (Auto) 0.0x10^3/uL (0.0-0.7) 0.0x10^3/uL (0.0-0.7) Basophils # (Auto) 0.0x10^3/uL (0.0-0.2) 0.0x10^3/uL (0.0-0.2) Prothrombin Time 13.2SEC (11.7-14.0) Prothromb Time International Ratio 1.1 (0.8-1.1) Sodium Level 140mmol/L (136-145) 139mmol/L (136-145) Potassium Level 4.2mmol/L (3.5-5.1) 3.7mmol/L (3.5-5.1) Chloride Level 102mmol/L (98-107) 102mmol/L (98-107) Carbon Dioxide Level 28mmol/L (21-32) 26mmol/L (21-32) Anion Gap 10 (6-14) 11 (6-14) Blood Urea Nitrogen 13mg/dL (7-20) 13mg/dL (7-20) Creatinine 0.6mg/dL (0.6-1.0) 0.5mg/dL (0.6-1.0) Estimated GFR (Cockcroft-Gault) 103.4 127.6 Glucose Level 114mg/dL (70-99) 101mg/dL (70-99) Calcium Level 9.7mg/dL (8.5-10.1) 9.3mg/dL (8.5-10.1) Magnesium Level 1.9mg/dL (1.8-2.4) Total Bilirubin 0.5mg/dL (0.2-1.0) Direct Bilirubin 0.1mg/dL (0.0-0.2) Aspartate Amino Transf (AST/SGOT) 17U/L (15-37) Alanine Aminotransferase (ALT/SGPT) 18U/L (14-59) Alkaline Phosphatase 109U/L (46-116) Creatine Kinase 41U/L (26-192) Creatine Kinase MB (Mass) < 0.5ng/mL (0.0-3.6) Creatine Kinase MB Relative Index % (0-4) Troponin I Quantitative < 0.017ng/mL (0.000-0.055) < 0.017ng/mL (0.000-0.055) < 0.017ng/mL (0.000-0.055) SF-Dll-Z-Type Natriuretic Peptide 33pg/mL (0-124) Total Protein 8.2g/dL (6.4-8.2) Albumin 4.1g/dL (3.4-5.0) Lipase 159U/L (73-393) Laboratory Tests Test 01/17/17 20:00 01/18/17 02:00 Troponin I Quantitative < 0.017ng/mL (0.000-0.055) < 0.017ng/mL (0.000-0.055) White Blood Count 9.8x10^3/uL (4.0-11.0) Red Blood Count 4.30x10^6/uL (3.50-5.40) Hemoglobin 11.9g/dL (12.0-15.5) Hematocrit 36.7% (36.0-47.0) Mean Corpuscular Volume 85fL (79-100) Mean Corpuscular Hemoglobin 28pg (25-35) Mean Corpuscular Hemoglobin Concent 33g/dL (31-37) Red Cell Distribution Width 14.0% (11.5-14.5) Platelet Count 245x10^3/uL (140-400) Neutrophils (%) (Auto) 79% (31-73) Lymphocytes (%) (Auto) 13% (24-48) Monocytes (%) (Auto) 8% (0-9) Eosinophils (%) (Auto) 0% (0-3) Basophils (%) (Auto) 0% (0-3) Neutrophils # (Auto) 7.7x10^3uL (1.8-7.7) Lymphocytes # (Auto) 1.3x10^3/uL (1.0-4.8) Monocytes # (Auto) 0.8x10^3/uL (0.0-1.1) Eosinophils # (Auto) 0.0x10^3/uL (0.0-0.7) Basophils # (Auto) 0.0x10^3/uL (0.0-0.2) Sodium Level 139mmol/L (136-145) Potassium Level 3.7mmol/L (3.5-5.1) Chloride Level 102mmol/L (98-107) Carbon Dioxide Level 26mmol/L (21-32) Anion Gap 11 (6-14) Blood Urea Nitrogen 13mg/dL (7-20) Creatinine 0.5mg/dL (0.6-1.0) Estimated GFR (Cockcroft-Gault) 127.6 Glucose Level 101mg/dL (70-99) Calcium Level 9.3mg/dL (8.5-10.1) Assessment/Plan Assessment/Plan shoulder pain abscess to abd wall--drained in ER, continue abx, small packing in wound to keep open and allow to drain, does not appear to need further I&D at this time TIEN NICHOLS [employer] Jan 18, 2017 14:44
[2017-01-18 15:00] VITALS: BP 128/66
[2017-01-18] MEDS ORDERED: methylPREDNISolone ACETATE 40 MG/ML VIAL. IM ONE (15:00)
[2017-01-18] MEDS ORDERED: BUPIVACAINE MPF 0.25% 10 ML VIAL. IJ ONE (15:00)
--- NOTE | 2017-01-18 16:34 | PDOC2 ---
CONSULT Date of Consult Date of Consult DATE: 01/18/17 TIME: 16:26 Identification/Chief Complaint Chief Complaint Left shoulder pain Source Source: Chart review, Patient History of Present Illness Reason for Visit: This 56-year-old left-handed woman came to the hospital with sudden onset left shoulder pain. She says she woke up 2 days ago, drove her grandson to school, and when she got home she couldn't even lift her arm. She had severe pain and was admitted to the hospital. She was also admitted with abdominal wall abscess that was drained in the emergency room. She denies any trauma to the shoulder. Past Medical History Cardiovascular: No pertinent hx Pulmonary: No pertinent hx GI: No pertinent hx Heme/Onc: No pertinent hx Hepatobiliary: No pertinent hx Psych: No pertinent hx Rheumatologic: No pertinent hx Infectious disease: No pertinent hx ENT: No pertinent hx Renal/: No pertinent hx Endocrine: No pertinent hx Dermatology: No pertinent hx Past Surgical History Past Surgical History: Other (lap band 1 year ago) Family History Family History: Hypertension Social History No ALCOHOL: none Drugs: None Current Problem List Problem List Problems Medical Problems: (1) Shoulder pain Status: Acute Current Medications Current Medications Current Medications Morphine Sulfate 2 mg PRN Q15MIN PRN IV/SQ PAIN GREATER THAN 3/10 Last administered on 01/18/17 07:33; Start 01/17/17 at 11:15; Stop 01/18/17 at 11:14 ; Status DC Lidocaine/Sodium Bicarbonate (Buffered Lidocaine 1%) 20 ml 1X ONCE IJ Last administered on 01/17/17 11:50; Start 01/17/17 at 11:30; Stop 01/17/17 at 11:32 ; Status DC Diphtheria/ Tetanus/Acell Pertussis (Boostrix) 0.5 ml ONCE ONCE VAX IM Last administered on 01/17/17 11:54; Start 01/17/17 at 11:45; Stop 01/17/17 at 11:46 ; Status DC Hydromorphone HCl (Dilaudid) 1 mg 1X ONCE IV Last administered on 01/17/17 12 :55; Start 01/17/17 at 12:45; Stop 01/17/17 at 12:46; Status DC Hydromorphone HCl 1 mg 1 mg PRN Q15MIN PRN IV/SQ PAIN GREATER THAN 3/10 Last administered on 01/17/17 17:03; Start 01/17/17 at 13:15; Stop 01/18/17 at 13:14 ; Status DC Clindamycin Phosphate 50 ml @ 100 mls/hr Q8HRS IV Last administered on 14:08; Start 01/17/17 at 22:00 Clindamycin Phosphate (Cleocin 600 Mg Premix) 50 ml @ 100 mls/hr ONCE ONCE IV Last administered on 01/17/17 14:52; Start 01/17/17 at 14:00; Stop 01/17/17 at 14:29; Status DC Ondansetron HCl (Zofran) 4 mg PRN Q8HRS PRN IV NAUSEA/VOMITING Last administered on 01/17/17 21:16; Start 01/17/17 at 13:45; Stop 01/18/17 at 13:44 ; Status DC Morphine Sulfate 4 mg PRN Q2HR PRN IV PAIN Last administered on 01/17/17 21:16 ; Start 01/17/17 at 13:45; Stop 01/18/17 at 13:44; Status DC Aspirin (Adilia Aspirin) 325 mg 1X ONCE PO Last administered on 01/17/17 16:58 ; Start 01/17/17 at 13:45; Stop 01/17/17 at 13:46; Status DC Naproxen (Naprosyn) 500 mg BID PO Last administered on 01/18/17 07:32; Start 01/17/17 at 21:00 Oxycodone/ Acetaminophen (Percocet 5/325) 1 tab PRN Q4HRS PRN PO PAIN Last administered on 01/18/17 06:12; Start 01/17/17 at 16:30 Clindamycin HCl (Cleocin) 300 mg TID PO ; Start 01/18/17 at 14:00; Stop at 14:00; Status DC Bupivacaine HCl (Sensorcaine-Mpf 0.25%) 10 ml 1X ONCE IJ ; Start 01/18/17 at 15 :00; Stop 01/18/17 at 15:01; Status DC Methylprednisolone Acetate (Depo-Medrol 40mg Vial) 40 mg 1X ONCE IM ; Start at 15:00; Stop 01/18/17 at 15:01; Status DC Allergies Allergies: Coded Allergies: No Known Drug Allergies (Unverified , 01/17/17) ROS General: No: Fatigue, Malaise Respiratory: No: Shortness of breath Cardiovascular: No Chest Pain Musculoskeletal: Yes Joint Pain, Yes Other Physical Exam General: Alert, Oriented X3, Cooperative, No acute distress HEENT: Atraumatic Lungs: Normal air movement Heart: Regular rate Abdomen: Soft Extremities: Other (left shoulder gross alignment is normal. There is no obvious swelling or mass. She has tenderness to palpation over the subacromial bursa. She is nontender at the elbow. The wrist and hand are normal regarding strength, alignment, sensory function, and motor function.) Skin: No rashes, No breakdown Neuro: Sensation intact, Other (she had no neck pain with range of motion, negative Spurling's test, and no tingling or numbness in the fingers.) Psych/Mental Status: Mental status NL, Mood NL MUSCULOSKELETAL: Abnormal exam of left (shoulder. She had positive impingement signs. She has slight weakness of the rotator cuff, mostly pain with active resisted motion of the supraspinatus and infraspinatus. These findings on exam are consistent with rotator cuff tendinitis) Vitals VITALS Vital Signs Date Time Temp Pulse Resp B/P Pulse Ox O2 Delivery O2 Flow Rate FiO2 01/18/17 15:00 98.2 80 20 128/66 95 Room Air 98.2 Labs Labs Laboratory Tests Test 01/17/17 11:39 01/17/17 20:00 01/18/17 02:00 White Blood Count 7.8x10^3/uL (4.0-11.0) 9.8x10^3/uL (4.0-11.0) Red Blood Count 4.52x10^6/uL (3.50-5.40) 4.30x10^6/uL (3.50-5.40) Hemoglobin 12.7g/dL (12.0-15.5) 11.9g/dL (12.0-15.5) Hematocrit 38.2% (36.0-47.0) 36.7% (36.0-47.0) Mean Corpuscular Volume 85fL (79-100) 85fL (79-100) Mean Corpuscular Hemoglobin 28pg (25-35) 28pg (25-35) Mean Corpuscular Hemoglobin Concent 33g/dL (31-37) 33g/dL (31-37) Red Cell Distribution Width 13.9% (11.5-14.5) 14.0% (11.5-14.5) Platelet Count 250x10^3/uL (140-400) 245x10^3/uL (140-400) Neutrophils (%) (Auto) 71% (31-73) 79% (31-73) Lymphocytes (%) (Auto) 21% (24-48) 13% (24-48) Monocytes (%) (Auto) 7% (0-9) 8% (0-9) Eosinophils (%) (Auto) 1% (0-3) 0% (0-3) Basophils (%) (Auto) 0% (0-3) 0% (0-3) Neutrophils # (Auto) 5.5x10^3uL (1.8-7.7) 7.7x10^3uL (1.8-7.7) Lymphocytes # (Auto) 1.7x10^3/uL (1.0-4.8) 1.3x10^3/uL (1.0-4.8) Monocytes # (Auto) 0.6x10^3/uL (0.0-1.1) 0.8x10^3/uL (0.0-1.1) Eosinophils # (Auto) 0.0x10^3/uL (0.0-0.7) 0.0x10^3/uL (0.0-0.7) Basophils # (Auto) 0.0x10^3/uL (0.0-0.2) 0.0x10^3/uL (0.0-0.2) Prothrombin Time 13.2SEC (11.7-14.0) Prothromb Time International Ratio 1.1 (0.8-1.1) Sodium Level 140mmol/L (136-145) 139mmol/L (136-145) Potassium Level 4.2mmol/L (3.5-5.1) 3.7mmol/L (3.5-5.1) Chloride Level 102mmol/L (98-107) 102mmol/L (98-107) Carbon Dioxide Level 28mmol/L (21-32) 26mmol/L (21-32) Anion Gap 10 (6-14) 11 (6-14) Blood Urea Nitrogen 13mg/dL (7-20) 13mg/dL (7-20) Creatinine 0.6mg/dL (0.6-1.0) 0.5mg/dL (0.6-1.0) Estimated GFR (Cockcroft-Gault) 103.4 127.6 Glucose Level 114mg/dL (70-99) 101mg/dL (70-99) Calcium Level 9.7mg/dL (8.5-10.1) 9.3mg/dL (8.5-10.1) Magnesium Level 1.9mg/dL (1.8-2.4) Total Bilirubin 0.5mg/dL (0.2-1.0) Direct Bilirubin 0.1mg/dL (0.0-0.2) Aspartate Amino Transf (AST/SGOT) 17U/L (15-37) Alanine Aminotransferase (ALT/SGPT) 18U/L (14-59) Alkaline Phosphatase 109U/L (46-116) Creatine Kinase 41U/L (26-192) Creatine Kinase MB (Mass) < 0.5ng/mL (0.0-3.6) Creatine Kinase MB Relative Index % (0-4) Troponin I Quantitative < 0.017ng/mL (0.000-0.055) < 0.017ng/mL (0.000-0.055) < 0.017ng/mL (0.000-0.055) JL-Cft-N-Type Natriuretic Peptide 33pg/mL (0-124) Total Protein 8.2g/dL (6.4-8.2) Albumin 4.1g/dL (3.4-5.0) Lipase 159U/L (73-393) Laboratory Tests Test 01/17/17 20:00 01/18/17 02:00 Troponin I Quantitative < 0.017ng/mL (0.000-0.055) < 0.017ng/mL (0.000-0.055) White Blood Count 9.8x10^3/uL (4.0-11.0) Red Blood Count 4.30x10^6/uL (3.50-5.40) Hemoglobin 11.9g/dL (12.0-15.5) Hematocrit 36.7% (36.0-47.0) Mean Corpuscular Volume 85fL (79-100) Mean Corpuscular Hemoglobin 28pg (25-35) Mean Corpuscular Hemoglobin Concent 33g/dL (31-37) Red Cell Distribution Width 14.0% (11.5-14.5) Platelet Count 245x10^3/uL (140-400) Neutrophils (%) (Auto) 79% (31-73) Lymphocytes (%) (Auto) 13% (24-48) Monocytes (%) (Auto) 8% (0-9) Eosinophils (%) (Auto) 0% (0-3) Basophils (%) (Auto) 0% (0-3) Neutrophils # (Auto) 7.7x10^3uL (1.8-7.7) Lymphocytes # (Auto) 1.3x10^3/uL (1.0-4.8) Monocytes # (Auto) 0.8x10^3/uL (0.0-1.1) Eosinophils # (Auto) 0.0x10^3/uL (0.0-0.7) Basophils # (Auto) 0.0x10^3/uL (0.0-0.2) Sodium Level 139mmol/L (136-145) Potassium Level 3.7mmol/L (3.5-5.1) Chloride Level 102mmol/L (98-107) Carbon Dioxide Level 26mmol/L (21-32) Anion Gap 11 (6-14) Blood Urea Nitrogen 13mg/dL (7-20) Creatinine 0.5mg/dL (0.6-1.0) Estimated GFR (Cockcroft-Gault) 127.6 Glucose Level 101mg/dL (70-99) Calcium Level 9.3mg/dL (8.5-10.1) Images Images Left shoulder images independently reviewed. Left shoulder MRI independently reviewed. Reports reviewed. She does have some rotator cuff tendinitis. There is evidence of calcium in the supraspinatus tendon such as on series 6 image # 10. Plain x-rays also show calcium in the supraspinatus tendon region. X-rays and MRI are consistent with calcific tendinitis. She also has some generalized rotator cuff tendinitis and partial thickness tearing but no full-thickness rotator cuff tear. Assessment/Plan Assessment/Plan I believe her current symptoms are from calcific tendinitis. Calcific tendinitis symptoms are usually sudden in onset and without trauma, but severe shoulder pain and inability to lift the arm. This correlates with her history and exam as well as the x-ray and MRI findings. Her arm function is a little bit better today than it was on admission. I recommend a cortisone injection today, and home exercise program to be provided by physical therapy. I spoke to her about the risks and benefits of a cortisone injection. I printed information for her on calcific tendinitis in both [place] and [place]. office follow-up in about 4 weeks would be appropriate. She agrees with a cortisone injection. A timeout was performed with patient verification, injection site location verification, and medication verification. I used 3 mL 0.25% Marcaine, and 1 mL 40 mg Depo-Medrol. The skin was cleansed first with isopropyl alcohol, and then sterile preparation was performed with chlorhexidine swab. A 27-gauge needle was used, and the subacromial bursa was injected without difficulty. She tolerated that well. A Band-Aid was placed. From my standpoint she is stable for discharge to home after therapy today. ALDO MOREL MD Jan 18, 2017 16:34
--- NOTE | 2017-01-18 22:19 | PDOC3 ---
Discharge Summary Visit Information Date of Admission: Jan 17, 2017 Date of Discharge: Jan 18, 2017 Admitting Diagnosis Comment: Chief Complaint 1. Left shoulder pain,acute onset, Generalized rotator cuff tendinosis. \2 Degenerative tear of the superior labrum, left shoulder 3. abd wall abscess s/p I and D at ER and packing Final Diagnosis Problems Medical Problems: (1) Shoulder pain Status: Acute Brief Hospital Course Allergies Allergies Coded Allergies Type Severity Reaction Last Updated Verified No Known Drug Allergies 01/17/17 No Vital Signs Vital Signs Date Time Temp Pulse Resp B/P Pulse Ox O2 Delivery O2 Flow Rate FiO2 01/18/17 17:53 16 95 Room Air 01/18/17 15:00 98.2 80 128/66 98.2 Lab Results Laboratory Tests Test 01/17/17 11:39 01/17/17 20:00 01/18/17 02:00 White Blood Count 7.8x10^3/uL (4.0-11.0) 9.8x10^3/uL (4.0-11.0) Red Blood Count 4.52x10^6/uL (3.50-5.40) 4.30x10^6/uL (3.50-5.40) Hemoglobin 12.7g/dL (12.0-15.5) 11.9g/dL (12.0-15.5) Hematocrit 38.2% (36.0-47.0) 36.7% (36.0-47.0) Mean Corpuscular Volume 85fL (79-100) 85fL (79-100) Mean Corpuscular Hemoglobin 28pg (25-35) 28pg (25-35) Mean Corpuscular Hemoglobin Concent 33g/dL (31-37) 33g/dL (31-37) Red Cell Distribution Width 13.9% (11.5-14.5) 14.0% (11.5-14.5) Platelet Count 250x10^3/uL (140-400) 245x10^3/uL (140-400) Neutrophils (%) (Auto) 71% (31-73) 79% (31-73) Lymphocytes (%) (Auto) 21% (24-48) 13% (24-48) Monocytes (%) (Auto) 7% (0-9) 8% (0-9) Eosinophils (%) (Auto) 1% (0-3) 0% (0-3) Basophils (%) (Auto) 0% (0-3) 0% (0-3) Neutrophils # (Auto) 5.5x10^3uL (1.8-7.7) 7.7x10^3uL (1.8-7.7) Lymphocytes # (Auto) 1.7x10^3/uL (1.0-4.8) 1.3x10^3/uL (1.0-4.8) Monocytes # (Auto) 0.6x10^3/uL (0.0-1.1) 0.8x10^3/uL (0.0-1.1) Eosinophils # (Auto) 0.0x10^3/uL (0.0-0.7) 0.0x10^3/uL (0.0-0.7) Basophils # (Auto) 0.0x10^3/uL (0.0-0.2) 0.0x10^3/uL (0.0-0.2) Prothrombin Time 13.2SEC (11.7-14.0) Prothromb Time International Ratio 1.1 (0.8-1.1) Sodium Level 140mmol/L (136-145) 139mmol/L (136-145) Potassium Level 4.2mmol/L (3.5-5.1) 3.7mmol/L (3.5-5.1) Chloride Level 102mmol/L (98-107) 102mmol/L (98-107) Carbon Dioxide Level 28mmol/L (21-32) 26mmol/L (21-32) Anion Gap 10 (6-14) 11 (6-14) Blood Urea Nitrogen 13mg/dL (7-20) 13mg/dL (7-20) Creatinine 0.6mg/dL (0.6-1.0) 0.5mg/dL (0.6-1.0) Estimated GFR (Cockcroft-Gault) 103.4 127.6 Glucose Level 114mg/dL (70-99) 101mg/dL (70-99) Calcium Level 9.7mg/dL (8.5-10.1) 9.3mg/dL (8.5-10.1) Magnesium Level 1.9mg/dL (1.8-2.4) Total Bilirubin 0.5mg/dL (0.2-1.0) Direct Bilirubin 0.1mg/dL (0.0-0.2) Aspartate Amino Transf (AST/SGOT) 17U/L (15-37) Alanine Aminotransferase (ALT/SGPT) 18U/L (14-59) Alkaline Phosphatase 109U/L (46-116) Creatine Kinase 41U/L (26-192) Creatine Kinase MB (Mass) < 0.5ng/mL (0.0-3.6) Creatine Kinase MB Relative Index % (0-4) Troponin I Quantitative < 0.017ng/mL (0.000-0.055) < 0.017ng/mL (0.000-0.055) < 0.017ng/mL (0.000-0.055) YP-Hip-N-Type Natriuretic Peptide 33pg/mL (0-124) Total Protein 8.2g/dL (6.4-8.2) Albumin 4.1g/dL (3.4-5.0) Lipase 159U/L (73-393) Laboratory Tests Test 01/18/17 02:00 White Blood Count 9.8x10^3/uL (4.0-11.0) Red Blood Count 4.30x10^6/uL (3.50-5.40) Hemoglobin 11.9g/dL (12.0-15.5) Hematocrit 36.7% (36.0-47.0) Mean Corpuscular Volume 85fL (79-100) Mean Corpuscular Hemoglobin 28pg (25-35) Mean Corpuscular Hemoglobin Concent 33g/dL (31-37) Red Cell Distribution Width 14.0% (11.5-14.5) Platelet Count 245x10^3/uL (140-400) Neutrophils (%) (Auto) 79% (31-73) Lymphocytes (%) (Auto) 13% (24-48) Monocytes (%) (Auto) 8% (0-9) Eosinophils (%) (Auto) 0% (0-3) Basophils (%) (Auto) 0% (0-3) Neutrophils # (Auto) 7.7x10^3uL (1.8-7.7) Lymphocytes # (Auto) 1.3x10^3/uL (1.0-4.8) Monocytes # (Auto) 0.8x10^3/uL (0.0-1.1) Eosinophils # (Auto) 0.0x10^3/uL (0.0-0.7) Basophils # (Auto) 0.0x10^3/uL (0.0-0.2) Sodium Level 139mmol/L (136-145) Potassium Level 3.7mmol/L (3.5-5.1) Chloride Level 102mmol/L (98-107) Carbon Dioxide Level 26mmol/L (21-32) Anion Gap 11 (6-14) Blood Urea Nitrogen 13mg/dL (7-20) Creatinine 0.5mg/dL (0.6-1.0) Estimated GFR (Cockcroft-Gault) 127.6 Glucose Level 101mg/dL (70-99) Calcium Level 9.3mg/dL (8.5-10.1) Troponin I Quantitative < 0.017ng/mL (0.000-0.055) Brief Hospital Course Ms. Reynolds is a 56 old [sex] who presented with [ ] Left shoulder pain and very limited ROM> MRI showed sprain.strain with some tear. CO managed with ortho. BUt pt got better after NAproxen BID rich. HAd some abd wall abscess drained by ER. Needed GS consult as packing still needed, BUt ok to dc and ff up as OP with GS and ortho. 2 notes today Pt seen and examined Pls see my earlier progress note Discharge Information Condition at Discharge: Improved, Stable Disposition/Orders: D/C to Home Scheduled Clindamycin Hcl (Clindamycin Hcl) 2 CAP PO TID Naproxen (Naproxen) 1 TAB PO BID BRIANA HARGROVE MD Jan 18, 2017 22:19
== END 2017-01-18 18:26 | disposition home or self-care (01) ==
LOC: ER 10:09 → 4 NORTH 13:30
PROVIDERS: ADMIT Internal Medicine; ATTEND Internal Medicine
DX: S43.402A Unspecified sprain of left shoulder joint, initial encounter (principal); M75.102 Unspecified rotator cuff tear or rupture of left shoulder, not specified as traumatic; Z82.49 Family history of ischemic heart disease and other diseases of the circulatory system; X58.XXXA Exposure to other specified factors, initial encounter; Y93.89 Activity, other specified; Y92.89 Other specified places as the place of occurrence of the external cause; Y99.8 Other external cause status
CPT/HCPCS: 10060; 36415; 71010; 73030; 73221; 80048; 80076; 82553; 83690; 83735; 83880; 84484; 85027; 85610; 87040; 87071; 87075; 87205; 90471; 90715; 93005; 93971; 96365; 96366; 96375; 96376; 97161; 99285; G0378; J1170; J2270; J2405; J3490; 96374; G0379

== ENCOUNTER 2017-10-19 14:21 | Emergency (ER) | payer BC ==
[~2017-10-19] VITALS: Ht 165.1 cm; Wt 67.6 kg
[~2017-10-19 14:21] MED LIST: CLIN300C8 PO; NAPR500T4 PO
[2017-10-19 14:35] VITALS: BP 145/64
[2017-10-19] MEDS ORDERED: DIPHTH,PERTUSS(ACELL),TET TOX 0.5 ML DISP.SYRIN. VAX IM ONE (15:00)
[2017-10-19] MEDS ORDERED: HYDROcodone/APAP 5/325MG 1 TAB TABLET PO ONE (15:00)
[2017-10-19] MEDS ORDERED: LIDOCAINE WITH 8.4% SOD BICARB 3 ML DISP.SYRIN. IJ ONE (15:00)
[2017-10-19] MEDS ORDERED: CLIN150C14 PO (15:34)
[2017-10-19] MEDS ORDERED: HYDR-971 PO (15:34)
--- NOTE | 2017-10-19 15:35 | PHYS DOC ---
Past Medical History Past Medical History: No Pertinent History Past Surgical History: Other Additional Past Surgical Histo: STOMACH SURG Alcohol Use: None Drug Use: None Adult General Chief Complaint Chief Complaint: ABSCESS HPI HPI Patient is a 57 year old female who presents with abscess to the left anterior hip that began 5 days ago. Patient denies any fever. She states she has been taking amoxicillin from a previous prescription. Review of Systems Review of Systems Constitutional: Denies fever or chills [] Musculoskeletal: Denies back pain or joint pain [] Integument: Abscess to the left anterior hip Neurologic: Denies headache, focal weakness or sensory changes [] All other systems were reviewed and found to be within normal limits, except as documented in this note. Current Medications Current Medications Current Medications Medications (Trade) Dose Ordered Sig/Rodger Start Time Stop Time Status Last Admin Dose Admin Acetaminophen/ Hydrocodone Bitart (Lortab 5/325) 2 tab 1X ONCE 10/19/17 15:00 10/19/17 15:01 DC Diphtheria/ Tetanus/Acell Pertussis (Boostrix) 0.5 ml ONCE ONCE 10/19/17 15:00 10/19/17 15:01 DC Lidocaine/Sodium Bicarbonate (Buffered Lidocaine 1%) 9 ml 1X ONCE 10/19/17 15:00 10/19/17 15:01 DC Allergies Allergies Allergies Coded Allergies Type Severity Reaction Last Updated Verified No Known Drug Allergies 01/17/17 No Physical Exam Physical Exam Constitutional: Well developed, well nourished, no acute distress, non-toxic appearance. [] Skin: Warm, dry, there is an area of induration approximately 5 x 4 cm on the left anterior hip consistent with an abscess. The area is very firm. There is no fluctuance in the area. The area is warm. This cellulitis over the area. This is an abscess that is not ready to drain. Back: No tenderness, no CVA tenderness. [] Extremities: No tenderness, no cyanosis, no clubbing, ROM intact, no edema. [] Neurologic: Alert and oriented X 3, normal motor function, normal sensory function, no focal deficits noted. [] Psychologic: Affect normal, judgement normal, mood normal. [] Current Patient Data Vital Signs Vital Signs Date Time Temp Pulse Resp B/P (MAP) Pulse Ox O2 Delivery O2 Flow Rate FiO2 10/19/17 14:35 98.1 89 20 145/64 (91) 98 Room Air 98.1 EKG EKG [] Radiology/Procedures Radiology/Procedures [] Course & Med Decision Making Course & Med Decision Making Pertinent Labs and Imaging studies reviewed. (See chart for details) Patient has an abscess on the left anterior hip that is not ready to be drained. She was started on clindamycin. She was given tetanus shot in the ED. Warm compresses recommended to the area. Provided also recommended to the area. Instructed to follow-up with a PCP in the next 3-7 days. Dragon Disclaimer Dragon Disclaimer This electronic medical record was generated, in whole or in part, using a voice recognition dictation system. Departure Departure Impression: Primary Impression: Abscess or cellulitis of hip Disposition: 01 HOME, SELF-CARE Condition: STABLE Referrals: ANIRUDH MELGAR DO (PCP) follow up with your doctor in 3 days Patient Instructions: Abscess, Cellulitis, [id number] Additional Instructions: You were seen for an abscess on the left hip area. Keep the area clean and dry. Apply warm compresses to the area twice a day. Take the oral prescribed antibiotics as ordered. Ensure you complete them. Follow-up with your doctor in 3-7 days. Scripts Clindamycin Hcl (CLINDAMYCIN HCL) 150 Mg Capsule 3 CAP PO TID, #90 CAP Prov: JOSE DE JESUS METZ APRN 10/19/17 Hydrocodone/Apap 5-325 (NORCO 5-325 TABLET) 1 Each Tablet 1 TAB PO Q4-6HRS Y for PAIN, #20 TAB Prov: JOSE DE JESUS METZ APRN 10/19/17 JOSE DE JESUS METZ APRN Oct 19, 2017 15:35
== END 2017-10-19 15:45 | disposition home or self-care (01) ==
LOC: ER 14:21
DX: L03.116 Cellulitis of left lower limb (principal); L02.416 Cutaneous abscess of left lower limb
CPT/HCPCS: 90471; 90715; 99283-25